=== PATIENT | male | born 1960 | race Caucasian/White ===

== ENCOUNTER 2017-03-19 12:10 | Inpatient (IN) | payer OTHER ==
[~2017-03-19] VITALS: Ht 172.7 cm; Wt 79.4 kg
[2017-03-19 15:24] LABS: HEMATOCRIT. 41.6 % (42.0-52.0); HEMOGLOBIN. 14.5 g/dL (14.0-18.0); LYMPHOCYTES % 25.3 % (20.0-50.0); MEAN CORPUSCULAR HEMOGLOBIN 34.1 pg (28.0-32.0); MEAN CORPUSCULAR VOLUME 97.7 fL (80.0-94.0); MEAN PLATELET VOLUME 8.6 fl (7.4-10.4); MONOCYTES % 11.6 % (2.0-8.0); NEUTROPHILS % 61.1 % (40.0-76.0); PLATELET 187 x1000/uL (130-400); RED BLOOD CELL COUNT 4.26 mill/uL (4.7-6.1); RED CELL DISTRIBUTION WIDTH 13.1 % (11.6-14.6)
[2017-03-19 15:29] LABS: CHLORIDE 106 mEq/L (98-107)
[2017-03-19 15:35] LABS: INR 1.1; PARTIAL THROMBOPLASTIN TIME 27.4 sec (23.4-31.0); PROTHROMBIN TIME 11.1 sec (9.4-11.6)
[2017-03-19 15:38] LABS: CARBON DIOXIDE 26 mEq/L (21-32); TROPONIN I < 0.02 ng/mL (0.00-0.04)
[2017-03-19 23:35] VITALS: BP 177/87
[2017-03-20] MEDS ORDERED: ACETAMINOPHEN 325MG TABLET PO PRN (00:45)
[2017-03-20] MEDS ORDERED: ONDANSETRON HCL 4MG/2ML VIAL IV PRN (00:45)
[2017-03-20] MEDS ORDERED: TEMAZEPAM 15MG CAPSULE PO PRN (00:45)
[2017-03-20] MEDS ORDERED: DEXTROSE 50% WATER 50ML SYRINGE IV PRN (00:45)
[2017-03-20] MEDS ORDERED: CLONIDINE 0.1MG TABLET PO PRN (01:00)
[2017-03-20] MEDS ORDERED: HYDR100T26 PO ×2 (02:43)
[2017-03-20] MEDS ORDERED: LOSA100T14 PO (02:43)
[2017-03-20] MEDS ORDERED: METF500T4 PO (02:43)
[2017-03-20 04:00] VITALS: BP 156/87
[2017-03-20] MEDS: HYDRALAZINE HCL 50MG TABLET PO SCH ×2 (05:20→13:35)
[2017-03-20] MEDS: BLOOD SUGAR DIAGNOSTIC STRIP TEST SCH ×2 (05:26→12:12)
[2017-03-20] MEDS ORDERED: CLONIDINE 0.1MG TABLET PO SCH (06:00)
[2017-03-20] MEDS: INSULIN LISPRO 100 UNITS/ML SUBCUT SCH ×2 (06:11→12:12)
[2017-03-20 08:00] VITALS: BP 132/76
[2017-03-20] MEDS ORDERED: LOSARTAN POTASSIUM 100 MG TABLET PO SCH (09:00)
[2017-03-20] MEDS ORDERED: METFORMIN HCL 500MG SR TABLET 24HR PO SCH (09:00)
[2017-03-20] MEDS ORDERED: ASPIRIN 325MG TABLET PO SCH (09:00)
[2017-03-20] MEDS ORDERED: ENOXAPARIN 40MG/0.4ML SYR SUBCUT SCH (09:00)
[2017-03-20 12:00] VITALS: BP 135/78
[2017-03-20 15:16] VITALS: BP 131/78
== END 2017-03-20 16:34 | disposition home or self-care (01) | DRG 69 ==
LOC: ER 12:18 → 8WST 16:44 → EDBEDREQ 16:53 → EDBEDREQTM 16:53 → ENRESERV 22:16
PROVIDERS: ADMIT Internal Medicine; ATTEND Internal Medicine
DX: G45.9 Transient cerebral ischemic attack, unspecified (principal); E11.9 Type 2 diabetes mellitus without complications; E66.9 Obesity, unspecified; E78.00 Pure hypercholesterolemia, unspecified; E78.5 Hyperlipidemia, unspecified; F12.90 Cannabis use, unspecified, uncomplicated; F17.200 Nicotine dependence, unspecified, uncomplicated; F10.10 Alcohol abuse, uncomplicated; I10 Essential (primary) hypertension; Z79.899 Other long term (current) drug therapy; Z79.82 Long term (current) use of aspirin; Z88.8 Allergy status to other drugs, medicaments and biological substances; Z68.26 Body mass index [BMI] 26.0-26.9, adult
CPT/HCPCS: 36415; 70450; 70551; 71045; 80053; 80061; 82962; 83036; 83690; 84443; 84484; 85025; 85610; 85730; 93005; 93880; 99285; J1650